=== PATIENT | female | born 1980 | race Two or more races ===

== ENCOUNTER → 2019-08-19 | Outpatient (CLI) | payer MEDICAID | END | disposition home or self-care (01) | LOC: XYW 10:01 | PROVIDERS: ATTEND Internal Medicine | DX: I51.7 Cardiomegaly (principal); R07.9 Chest pain, unspecified | CPT/HCPCS: 93306 ==

== ENCOUNTER → 2019-12-15 | Outpatient (CLI) | payer MEDICAID ==
[~2019-12-15] VITALS: Ht 157.5 cm; Wt 127.9 kg
[~2019-12-15] MED LIST: ADENOSINE 107 MG in GIVE UN-DILUTED 0 ML IV STA
== END | disposition home or self-care (01) ==
LOC: XY 08:09
PROVIDERS: ATTEND Internal Medicine
DX: I10 Essential (primary) hypertension (principal); E78.5 Hyperlipidemia, unspecified; R07.9 Chest pain, unspecified; R63.5 Abnormal weight gain; Q23.1 Congenital insufficiency of aortic valve
CPT/HCPCS: 78452; 93017; A9500; J0153

== ENCOUNTER 2020-03-23 02:47 | Inpatient (IN) | payer MEDICAID ==
[~2020-03-23] VITALS: Ht 157.5 cm; Wt 127.5 kg
[2020-03-23 04:07] LABS: Red Cell Distribution Width 14.9 % (11.8-14.3)
[2020-03-23 04:08] LABS: Hematocrit 36.2 % (36.0-46.0); Hemoglobin 12.4 g/dL (12.2-16.2); Mean Corpuscular Hemoglobin 27.5 pg (28.0-32.0); Mean Corpuscular Hgb Conc. 34.3 g/dL (32.0-36.0); Mean Corpuscular Volume 80.2 fL (80.0-100.0); Platelet Count (auto) 378 10^3/uL (140-450); Red Blood Cells 4.51 10^6/uL (4.0-5.20); White Blood Cell 8.6 10^3/uL (4.4-10.8)
[2020-03-23 04:21] LABS: Band Neutrophils % (manual) 0; Basophils % (manual) 0 (0.0-2.0); Blast Cells 0; Eosinophils % (manual) 0 (0-7); Metamyelocytes % 0; Myelocytes % 0; Promyelocytes % 0; Reactive Lymphocytes 0
[2020-03-23 04:26] LABS: Albumin 2.6 g/dL (3.4-5.0)
[2020-03-23 04:32] LABS: BUN/Creatinine Ratio 13.4; Bilirubin, Total 0.6 mg/dL (0.2-1.0); Total Protein 7.6 g/dL (6.4-8.2)
[2020-03-23 04:59] LABS: Lymphocytes % (manual) 15 (10.0-50.0); Monocytes % (manual) 5 (0-12)
[2020-03-23 05:07] LABS: INR 0.96 (0.9-1.15); Partial Thromboplastin Time 25.4 sec (23.0-31.2)
[2020-03-23] MEDS ORDERED: ENOXAPARIN SOD 150 MG/1 ML SYRINGE SC ONE (09:15)
[2020-03-23] MEDS ORDERED: DexAMETHasone SOD PHOS 10MG/1ML VIAL INJ IV ONE (09:45)
[2020-03-23] MEDS ORDERED: cefTRIAXone 1GM/50ML D5W 50 ML IV ONE (09:45)
[2020-03-23] MEDS ORDERED: POTASSIUM CHL 20 Meq TABLET PO ONE (14:45)
[2020-03-23] MEDS ORDERED: REMDESIVIR PER PHARMACY 0 ML IV SCH (18:00)
[2020-03-23] MEDS ORDERED: ACETAMINOPHEN 500 MG TAB PO PRN (18:00)
[2020-03-23] MEDS ORDERED: ALBUTEROL SULF HFA 90MCG INH 200DOSE IN PRN (18:00)
[2020-03-23] MEDS ORDERED: NITROGLYCERIN 0.4 MG SL TAB SL PRN (18:15)
[2020-03-23] MEDS: BUDESONIDE (INHALATION) 180 MCG IH IN SCH (18:54)
[2020-03-23] MEDS ORDERED: LIDO5PAD8 EX (19:29)
[2020-03-23] MEDS ORDERED: ATEN-60 PO (19:29)
[2020-03-23 21:34] LABS: CRP High Sensitivity 10.2 mg/dL (< 0.3); Magnesium 2.6 mg/dL (1.6-2.6)
[2020-03-23] MEDS: ENOXAPARIN SOD 40 MG/0.4 ML SYRINGE SC SCH (22:12)
[2020-03-23] MEDS: DOXYCYCLINE 100MG/250ML 250 ML IV SCH (22:12)
[2020-03-23] MEDS: FAMOTIDINE (10MG/ML) 2ML VL IV SCH (22:12)
[2020-03-24 01:07] VITALS: BP 124/74
[2020-03-24 01:10] VITALS: BP 124/74
[2020-03-24 08:00] VITALS: BP 135/83
[2020-03-24] MEDS: DexAMETHasone SOD PHOS 10MG/1ML VIAL INJ IV SCH (09:39)
[2020-03-24] MEDS: DOXYCYCLINE 100MG/250ML 250 ML IV SCH ×2 (09:40→22:24)
[2020-03-24] MEDS: ZINC SULFATE 220mg CAP or TAB PO SCH (09:40)
[2020-03-24] MEDS: FAMOTIDINE (10MG/ML) 2ML VL IV SCH ×2 (09:40→22:24)
[2020-03-24] MEDS: ASCORBIC ACID 1,000 MG TAB PO SCH (09:41)
[2020-03-24] MEDS: ENOXAPARIN SOD 40 MG/0.4 ML SYRINGE SC SCH ×2 (09:41→22:24)
[2020-03-24] MEDS: CHOLECALCIFEROL (VITD3) 2,000 UNIT CAP PO SCH (09:41)
[2020-03-24] MEDS: BUDESONIDE (INHALATION) 180 MCG IH IN SCH ×2 (10:00→22:00)
[2020-03-24 11:57] LABS: Mean Corpuscular Hgb Conc. 33.2 g/dL (32.0-36.0)
[2020-03-24 11:58] LABS: Mean Corpuscular Hemoglobin 26.7 pg (28.0-32.0); Mean Corpuscular Volume 80.3 fL (80.0-100.0); Platelet Count (auto) 512 10^3/uL (140-450); Red Blood Cells 4.49 10^6/uL (4.0-5.20); Red Cell Distribution Width 14.9 % (11.8-14.3); White Blood Cell 9.6 10^3/uL (4.4-10.8)
[2020-03-24 12:06] LABS: Albumin 2.6 g/dL (3.4-5.0); Calcium 8.6 mg/dL (8.5-10.1); Potassium 3.8 mmol/L (3.5-5.1)
[2020-03-24 12:12] LABS: BUN/Creatinine Ratio 28.3; Bilirubin, Total 0.4 mg/dL (0.2-1.0); Total Protein 7.6 g/dL (6.4-8.2)
[2020-03-24 13:13] LABS: Basophils % (manual) 0 (0.0-2.0); Blast Cells 0; Eosinophils % (manual) 0 (0-7); Promyelocytes % 0; Reactive Lymphocytes 0
[2020-03-24 14:04] LABS: Band Neutrophils % (manual) 6; Lymphocytes % (manual) 13 (10.0-50.0); Metamyelocytes % 2; Monocytes % (manual) 6 (0-12); Myelocytes % 1
[2020-03-24] MEDS ORDERED: REMDESIVIR 200 MG in NS 210ml LOADING DOSE ADULT IV ONE (15:00)
[2020-03-24 16:00] VITALS: BP 136/86
[2020-03-24] MEDS: SPIRONOLACTONE 25 MG TAB PO SCH (18:00)
[2020-03-24] MEDS: REMDESIVIR 100 MG in SODIUM CHL 0.9% 250 ML IV SCH (18:29)
[2020-03-24] MEDS ORDERED: LACTULOSE 20Gm/30ML SOLN PO SCH (22:00)
[2020-03-25] VITALS: BP 134/72
[2020-03-25 08:00] VITALS: BP 144/89
[2020-03-25] MEDS: DexAMETHasone SOD PHOS 10MG/1ML VIAL INJ IV SCH (10:06)
[2020-03-25] MEDS: FAMOTIDINE (10MG/ML) 2ML VL IV SCH ×2 (10:06→21:42)
[2020-03-25] MEDS: DOXYCYCLINE 100MG/250ML 250 ML IV SCH ×2 (10:06→21:43)
[2020-03-25] MEDS: ZINC SULFATE 220mg CAP or TAB PO SCH (10:07)
[2020-03-25] MEDS: ENOXAPARIN SOD 40 MG/0.4 ML SYRINGE SC SCH ×2 (10:08→21:44)
[2020-03-25] MEDS: CHOLECALCIFEROL (VITD3) 2,000 UNIT CAP PO SCH (10:08)
[2020-03-25] MEDS: ASCORBIC ACID 1,000 MG TAB PO SCH (10:08)
[2020-03-25] MEDS: BUDESONIDE (INHALATION) 180 MCG IH IN SCH ×3 (10:13→20:44)
[2020-03-25 12:02] LABS: Albumin 2.4 g/dL (3.4-5.0); Calcium 8.8 mg/dL (8.5-10.1); Potassium 3.5 mmol/L (3.5-5.1)
[2020-03-25 12:08] LABS: BUN/Creatinine Ratio 27.4; Bilirubin, Total 0.2 mg/dL (0.2-1.0); Total Protein 7.1 g/dL (6.4-8.2)
[2020-03-25] MEDS: REMDESIVIR 100 MG in SODIUM CHL 0.9% 250 ML IV SCH (15:47)
[2020-03-25 15:56] VITALS: BP 153/96
[2020-03-25] MEDS: SPIRONOLACTONE 25 MG TAB PO SCH (17:29)
[2020-03-25 22:09] VITALS: BP 152/93
[2020-03-26] VITALS: BP 152/93
[2020-03-26 07:45] LABS: Potassium 3.9 mmol/L (3.5-5.1)
[2020-03-26 07:53] LABS: Albumin 2.9 g/dL (3.4-5.0); BUN/Creatinine Ratio 32.3; Bilirubin, Total 0.3 mg/dL (0.2-1.0); Calcium 9.4 mg/dL (8.5-10.1); Total Protein 7.8 g/dL (6.4-8.2)
[2020-03-26 08:00] VITALS: BP 153/85
[2020-03-26] MEDS: DexAMETHasone SOD PHOS 10MG/1ML VIAL INJ IV SCH (09:16)
[2020-03-26] MEDS: CHOLECALCIFEROL (VITD3) 2,000 UNIT CAP PO SCH (09:17)
[2020-03-26] MEDS: DOXYCYCLINE 100MG/250ML 250 ML IV SCH ×2 (09:17→21:23)
[2020-03-26] MEDS: ASCORBIC ACID 1,000 MG TAB PO SCH (09:17)
[2020-03-26] MEDS: ZINC SULFATE 220mg CAP or TAB PO SCH (09:17)
[2020-03-26] MEDS: ENOXAPARIN SOD 40 MG/0.4 ML SYRINGE SC SCH ×2 (09:18→21:23)
[2020-03-26] MEDS: FAMOTIDINE (10MG/ML) 2ML VL IV SCH ×2 (10:00→21:24)
[2020-03-26] MEDS ORDERED: DOXY-332 PO (13:53)
[2020-03-26] MEDS ORDERED: FAMO20TA10 PO (13:53)
[2020-03-26] MEDS ORDERED: ALBUAER3 IN (13:53)
[2020-03-26] MEDS ORDERED: PRED20TA2 PO (13:53)
[2020-03-26 15:24] VITALS: BP 143/90
[2020-03-26] MEDS: REMDESIVIR 100 MG in SODIUM CHL 0.9% 250 ML IV SCH (15:25)
[2020-03-26 16:00] VITALS: BP 143/90
[2020-03-26] MEDS: SPIRONOLACTONE 25 MG TAB PO SCH (17:56)
[2020-03-26] MEDS: BUDESONIDE (INHALATION) 180 MCG IH IN SCH (19:49)
[2020-03-27] VITALS: BP 145/94
[2020-03-27] MEDS: BUDESONIDE (INHALATION) 180 MCG IH IN SCH (06:39)
[2020-03-27 06:54] LABS: Platelet Count (auto) 660 10^3/uL (140-450); Red Blood Cells 4.78 10^6/uL (4.0-5.20)
[2020-03-27 06:56] LABS: Hematocrit 38.4 % (36.0-46.0); Hemoglobin 12.4 g/dL (12.2-16.2); Mean Corpuscular Hgb Conc. 32.4 g/dL (32.0-36.0); Mean Corpuscular Volume 80.3 fL (80.0-100.0); Red Cell Distribution Width 15.1 % (11.8-14.3); White Blood Cell 11.6 10^3/uL (4.4-10.8)
[2020-03-27 07:15] LABS: Basophils % (manual) 0 (0.0-2.0); Blast Cells 0; Eosinophils % (manual) 0 (0-7); Promyelocytes % 0; Reactive Lymphocytes 0
[2020-03-27 07:37] LABS: Albumin 2.8 g/dL (3.4-5.0); Calcium 9.3 mg/dL (8.5-10.1)
[2020-03-27 07:39] LABS: BUN/Creatinine Ratio 33.3; Potassium 4.4 mmol/L (3.5-5.1)
[2020-03-27 07:47] LABS: Bilirubin, Total 0.2 mg/dL (0.2-1.0); Total Protein 7.3 g/dL (6.4-8.2)
[2020-03-27 08:00] VITALS: BP 141/82
[2020-03-27 08:20] VITALS: BP 141/82
[2020-03-27 09:09] LABS: Band Neutrophils % (manual) 6; Lymphocytes % (manual) 19 (10.0-50.0); Metamyelocytes % 2; Monocytes % (manual) 6 (0-12); Myelocytes % 3
[2020-03-27] MEDS: ZINC SULFATE 220mg CAP or TAB PO SCH (11:45)
[2020-03-27] MEDS: ASCORBIC ACID 1,000 MG TAB PO SCH (11:45)
[2020-03-27] MEDS: CHOLECALCIFEROL (VITD3) 2,000 UNIT CAP PO SCH (11:46)
[2020-03-27] MEDS: ENOXAPARIN SOD 40 MG/0.4 ML SYRINGE SC SCH (11:48)
[2020-03-27] MEDS: DexAMETHasone SOD PHOS 10MG/1ML VIAL INJ IV SCH (11:49)
[2020-03-27] MEDS: FAMOTIDINE (10MG/ML) 2ML VL IV SCH (11:49)
[2020-03-27] MEDS: DOXYCYCLINE 100MG/250ML 250 ML IV SCH (12:09)
[2020-03-27 16:00] VITALS: BP 143/76
== END 2020-03-27 18:35 | disposition home health service (06) | DRG 137 ==
LOC: ER 02:53 → TELE 02:54 → TELE-WESTW 23:56
PROVIDERS: ADMIT Hospitalist; ATTEND Hospitalist
PROC: XW033E5 Introduction of Remdesivir Anti-infective into Peripheral Vein, Percutaneous Approach, New Technology Group 5 (ICD-10-PCS; principal; 2020-03-23)
DX: U07.1 COVID-19 (principal); J12.82 Pneumonia due to coronavirus disease 2019; J96.01 Acute respiratory failure with hypoxia; I21.4 Non-ST elevation (NSTEMI) myocardial infarction; E87.6 Hypokalemia; E78.5 Hyperlipidemia, unspecified; I10 Essential (primary) hypertension; J98.11 Atelectasis; E66.01 Morbid (severe) obesity due to excess calories; Z82.49 Family history of ischemic heart disease and other diseases of the circulatory system; Z83.3 Family history of diabetes mellitus; Z68.43 Body mass index [BMI] 50.0-59.9, adult; Z88.6 Allergy status to analgesic agent
CPT/HCPCS: 36415; 71045; 80053; 82728; 83605; 83615; 83735; 83880; 84443; 84484; 85007; 85025; 85027; 85379; 85610; 85730; 86141; 87040; 87426; 93005; 93970; 94640; 96365; 96372; 96375; 99291; G0378; J0696; J1100; J3490

== ENCOUNTER → 2020-06-21 | Outpatient (CLI) | payer MEDICAID ==
[~2020-06-21] MED LIST changes: -ADENOSINE 107 MG in GIVE UN-DILUTED 0 ML IV STA; +ASCO500T11 PO; +ATEN-60 PO; +CALC-312 PO; +CHOL100083 PO; +TURM500C3 PO
[2020-06-21 09:46] LABS: Basophils # (auto) 0.1 10 ^3/uL (0-0.2); Basophils % (auto) 0.6 % (0.0-2.0); Eosinophils # (auto) 0.2 10 ^3/uL (0-0.8); Hematocrit 41.2 % (36.0-46.0); Hemoglobin 13.4 g/dL (12.2-16.2); Lymphocytes # (auto) 2.1 10 ^3/uL (0.4-5.4); Mean Corpuscular Hgb Conc. 32.5 g/dL (32.0-36.0); Monocytes # (auto) 0.7 10 ^3/uL (0-1.3); Monocytes % (auto) 7.4 % (0.0-12.0); Neutrophils # (auto) 6.1 10 ^3/uL (1.6-8.6); Nucleated Red Blood Cells % 0.1 %; White Blood Cell 9.1 10^3/uL (4.4-10.8)
[2020-06-21 09:48] LABS: Eosinophils % (auto) 1.7 % (0.0-7.0); Lymphocytes % (auto) 23.1 % (10.0-50.0); Mean Corpuscular Hemoglobin 26.5 pg (28.0-32.0); Mean Corpuscular Volume 81.5 fL (80.0-100.0); Neutrophils % (auto) 67.2 % (37.0-80.0); Platelet Count (auto) 392 10^3/uL (140-450); Red Blood Cells 5.06 10^6/uL (4.0-5.20); Red Cell Distribution Width 15.2 % (11.8-14.3)
[2020-06-21 10:05] LABS: INR 0.92 (0.9-1.15); Partial Thromboplastin Time 24.2 sec (23.0-31.2)
[2020-06-21 10:32] LABS: Calcium 8.4 mg/dL (8.5-10.1); Potassium 4.6 mmol/L (3.5-5.1)
[2020-06-21 10:38] LABS: Albumin 3.5 g/dL (3.4-5.0); BUN/Creatinine Ratio 17.9; Bilirubin, Total 0.3 mg/dL (0.2-1.0); Total Protein 7.7 g/dL (6.4-8.2)
== END | disposition home or self-care (01) ==
LOC: LAB 09:24
PROVIDERS: ATTEND Internal Medicine
DX: Z01.812 Encounter for preprocedural laboratory examination (principal); I10 Essential (primary) hypertension
CPT/HCPCS: 36415; 80053; 85025; 85610; 85730

== ENCOUNTER 2020-06-26 06:52 | Day surgery (SDC) | payer MEDICAID ==
[~2020-06-26] VITALS: Ht 157.5 cm; Wt 131.5 kg
[2020-06-26] MEDS ORDERED: fentaNYL CITRATE 100 MCG/2 ML VL ONE (10:08)
[2020-06-26] MEDS ORDERED: ANGIOMAX 250 MG VIAL IV ONE (10:08)
[2020-06-26] MEDS ORDERED: SODIUM CHL 0.9% 0 ML ONE (10:08)
[2020-06-26] MEDS ORDERED: MIDAZOLAM HCL 1MG/1ML-2 ML VIAL ONE (10:08)
[2020-06-26] MEDS ORDERED: LIDOCAINE 2%HCL (LOCAL ANESTH.) INJ 20ML MDV ONE (10:11)
[2020-06-26] MEDS ORDERED: IODIXANOL 320MG/ML 100ML BTL IV ONE (10:11)
[2020-06-26] MEDS ORDERED: ONDANSETRON HCL 4 MG/2 ML VIAL IV PRN (11:30)
[2020-06-26] MEDS ORDERED: ACETAMINOPHEN 500 MG TAB PO PRN (11:30)
== END 2020-06-26 13:35 | disposition home or self-care (01) ==
LOC: CATH 06:52
PROVIDERS: ATTEND Internal Medicine
DX: R94.39 Abnormal result of other cardiovascular function study (principal); I35.0 Nonrheumatic aortic (valve) stenosis; I27.20 Pulmonary hypertension, unspecified; I10 Essential (primary) hypertension; E66.9 Obesity, unspecified; Z68.43 Body mass index [BMI] 50.0-59.9, adult; Z98.890 Other specified postprocedural states; Z79.899 Other long term (current) drug therapy; Z20.822 Contact with and (suspected) exposure to COVID-19; Z88.5 Allergy status to narcotic agent
CPT/HCPCS: 93460; C1751; C1760; C1894; J1644; J2250; J3010; J7030; Q9967; U0003; 99152; 99153